=== PATIENT | male | born 1960 | race African-American/Black ===

== ENCOUNTER 2023-11-23 07:13 | Inpatient (IN) | payer MEDICARE, OTHER ==
[~2023-11-23] VITALS: Ht 188 cm; Wt 119.7 kg
[2023-11-23] MEDS: SODIUM CHLORIDE 0.9% 1,000 ML IV ONE (08:23)
[2023-11-23 10:50] LABS: BASOPHILS % 0.5 % (0.0-2.0); CHLORIDE 100 mEq/L (98-107); HEMATOCRIT. 30.5 % (42.0-52.0); HEMOGLOBIN. 9.4 g/dL (14.0-18.0); LYMPHOCYTES % 7.5 % (20.0-50.0); MEAN CORPUSCULAR HEMOGLOBIN 27.2 pg (28.0-32.0); MEAN CORPUSCULAR HGB CONC 30.7 g/dL (31.0-37.0); MEAN CORPUSCULAR VOLUME 88.8 fL (80.0-94.0); MONOCYTES % 10.9 % (2.0-8.0); NEUTROPHILS % 81.1 % (40.0-76.0); PLATELET 133 x1000/uL (130-400); POTASSIUM 4.8 mEq/L (3.5-5.1); RED BLOOD CELL COUNT 3.44 mill/uL (4.7-6.1); RED CELL DISTRIBUTION WIDTH 19.3 % (11.6-14.6); SODIUM 134 mEq/L (136-145); WHITE BLOOD COUNT 7.7 x1000/uL (4.5-11.0)
[2023-11-23 10:51] LABS: CALCIUM 9.2 mg/dL (8.7-10.4); CARBON DIOXIDE 26 mEq/L (21-32)
[2023-11-23 10:55] LABS: INR 1.3
[2023-11-23 10:56] LABS: GLUCOSE 118 mg/dL (70-105)
[2023-11-23 10:57] LABS: UREA NITROGEN BLOOD 30 mg/dL (9-23)
[2023-11-23 10:58] LABS: ALANINE AMINOTRANSFERASE 49 IU/L (10-49); ALBUMIN 3.2 g/dL (3.2-4.8); AMMONIA 38 uMol/L (<32); ASPARTATE AMINOTRANSFERASE 121 IU/L (<34); CREATINE KINASE 609 IU/L (46-171); LACTIC ACID 2.2 mmol/L (0.4-2.0)
[2023-11-23 10:59] LABS: BILIRUBIN TOTAL 3.5 mg/dL (0.1-1.0); PROTEIN TOTAL 6.9 g/dL (6.0-8.3)
[2023-11-23 11:04] LABS: CREATININE 4.3 mg/dL (0.6-1.3)
[2023-11-23 11:08] LABS: ETHANOL BLOOD < 10 mg/dL (<10)
[2023-11-23 11:09] LABS: TROPONIN I HIGH SENSITIVITY 99 ng/L (3.0-53)
[2023-11-23 11:10] LABS: BG BASE EXCESS -2.2 mmol/L (-2.0-2.0); BG CARBOXYHEMOGLOBIN 0.3 % (0.5-1.5); BG DEOXYHEMOGLOBIN 1.8 % (0.0-5.0); BG FRACTION INSPIRED OXYGEN 28; BG HCO3 ACT 24.3 mmol/L (22.0-26.0); BG METHEMOGLOBIN 0.5 % (0.0-1.5); BG OXYGEN SATURATION 98.2 % (92.0-98.5); BG OXYHEMOGLOBIN 97.4 % (94.0-97.0); BG PCO2 49.9 mmHg (35.0-45.0); BG PH 7.306 (7.350-7.450); BG PO2 138.3 mmHg (75.0-100.0); BG SAMPLE SITE LEFT RADIAL; BG VENT MODE NASAL CANNULA
[2023-11-23] MEDS: SODIUM CHLORIDE 0.9% 1000ML BAG (SEPSIS BOLUS) IV ONE (12:44)
[2023-11-23] MEDS: PIPERACILLIN/TAZO 3.375G/50ML 50 ML IV ONE (12:44)
[2023-11-23] MEDS ORDERED: IPRATROPIUM/ALBUTEROL 0.5-3(2.5)MG/3ML NEB HHN PRN (12:45)
[2023-11-23] MEDS ORDERED: CLONIDINE 0.1MG TABLET PO PRN (12:45)
[2023-11-23] MEDS ORDERED: GUAIFENESIN 200MG/10ML SUGAR FREE UDC PO PRN (12:45)
[2023-11-23] MEDS: VANCOMYCIN 1G PREMIX 200 ML IV ONE (13:15)
[2023-11-23 13:56] LABS: IRON 37 ug/dL (65-175)
[2023-11-23 13:59] LABS: BILIRUBIN DIRECT 2.8 mg/dL (<=3.0); TOTAL IRON BINDING CAPACITY 143 ug/dl (250-425)
[2023-11-23 14:23] LABS: FERRITIN 105 ng/mL (22-322)
[2023-11-23 14:25] LABS: FOLIC ACID (FOLATE) SERUM 16.05 ng/mL (>5.38); VITAMIN B12 SERUM 667 pg/mL (211-911)
[2023-11-23 16:30] VITALS: BP 118/65; PULSE 74; RESP 20; TEMP 98.2
[2023-11-23 16:31] VITALS: BP 118/65; PULSE 76; RESP 20; TEMP 98.2
[2023-11-23] MEDS: FAMOTIDINE 20MG/2ML VIAL IV SCH (17:08)
[2023-11-23] MEDS: DEXT 5%/0.9% NACL 1,000 ML IV SCH (17:08)
[2023-11-23] MEDS: BLOOD SUGAR DIAGNOSTIC STRIP TEST SCH (17:08)
[2023-11-23] MEDS: INSULIN LISPRO 100 UNITS/ML SUBCUT SCH (17:17)
[2023-11-23] MEDS ORDERED: ASPIRIN 81MG EC TABLET PO SCH (19:15)
[2023-11-23 20:00] VITALS: BP 136/52; PULSE 72; RESP 16; TEMP 95.9
[2023-11-23] MEDS: ATORVASTATIN CALCIUM 40MG TABLET PO SCH (21:19)
[2023-11-23] MEDS: ENOXAPARIN 120MG/0.8ML SYR SUBCUT SCH (21:22)
[2023-11-24] VITALS (12 sets, daily range): BP systolic 100–134; BP diastolic 64–82; PULSE 74–99; RESP 16–20; TEMP 96.1–97.8
[2023-11-24] MEDS: MUPIROCIN 2% OINT 15GM TOP SCH (10:00)
[2023-11-24] MEDS ORDERED: ASPIRIN 81MG EC TABLET PO SCH (11:30)
[2023-11-24] MEDS ORDERED: CLOPIDOGREL 75MG TABLET PO SCH (11:30)
[2023-11-24] MEDS ORDERED: HYDRALAZINE HCL 25MG TABLET PO PRN (11:45)
[2023-11-24 12:42] LABS: BASOPHILS % 0.6 % (0.0-2.0); EOSINOPHILS % 0.8 % (0.0-5.0); HEMATOCRIT. 27.9 % (42.0-52.0); HEMOGLOBIN. 8.9 g/dL (14.0-18.0); LYMPHOCYTES % 15.2 % (20.0-50.0); MEAN CORPUSCULAR HEMOGLOBIN 28.8 pg (28.0-32.0); MEAN CORPUSCULAR HGB CONC 32.1 g/dL (31.0-37.0); MEAN CORPUSCULAR VOLUME 89.7 fL (80.0-94.0); MEAN PLATELET VOLUME 9.1 fl (7.4-10.4); MONOCYTES % 9.9 % (2.0-8.0); NEUTROPHILS % 73.5 % (40.0-76.0); PLATELET 133 x1000/uL (130-400); RED BLOOD CELL COUNT 3.11 mill/uL (4.7-6.1); RED CELL DISTRIBUTION WIDTH 19.3 % (11.6-14.6); WHITE BLOOD COUNT 5.6 x1000/uL (4.5-11.0)
[2023-11-24 12:53] LABS: CARBON DIOXIDE 25 mEq/L (21-32); CHLORIDE 101 mEq/L (98-107); POTASSIUM 4.9 mEq/L (3.5-5.1); SODIUM 134 mEq/L (136-145)
[2023-11-24 12:54] LABS: CALCIUM 9.5 mg/dL (8.7-10.4)
[2023-11-24 12:58] LABS: CREATININE 4.7 mg/dL (0.6-1.3); GLUCOSE 72 mg/dL (70-105)
[2023-11-24 12:59] LABS: TRIGLYCERIDE 67 mg/dL (0-150); UREA NITROGEN BLOOD 33 mg/dL (9-23)
[2023-11-24 13:00] LABS: ALANINE AMINOTRANSFERASE 49 IU/L (10-49); ALBUMIN 3.1 g/dL (3.2-4.8); ASPARTATE AMINOTRANSFERASE 108 IU/L (<34); LDL CHOLESTEROL 40 mg/dL (5-100)
[2023-11-24 13:01] LABS: BILIRUBIN TOTAL 3.2 mg/dL (0.1-1.0); CHOLESTEROL 74 mg/dL (<200); HDL CHOLESTEROL 26 mg/dL (>55); PROTEIN TOTAL 6.5 g/dL (6.0-8.3)
[2023-11-24 13:03] LABS: THYROID STIMULATING HORMONE 1.14 uIU/mL (0.55-4.78)
[2023-11-24 13:39] LABS: HEPATITIS B SURFACE ANTIGEN NEGATIVE (Negative)
[2023-11-24] MEDS: ASPIRIN 81MG TABLET PO SCH (14:03)
[2023-11-24] MEDS: CLOPIDOGREL 75MG TABLET PO SCH (14:04)
[2023-11-24] MEDS: APIXABAN 2.5 MG TABLET PO SCH (14:04)
[2023-11-24] MEDS: GABAPENTIN 100MG CAPSULE PO SCH (14:04)
[2023-11-24 15:58] LABS: T4 FREE 0.97 ng/dL (0.89-1.76)
[2023-11-24 16:09] LABS: HEPATITIS B SURFACE AB 810.6 mIU/mL (<10)
[2023-11-24] MEDS ORDERED: ATORVASTATIN CALCIUM 40MG TABLET PO SCH (21:00)
[2023-11-24] MEDS: ATORVASTATIN CALCIUM 40MG TABLET PO SCH (21:38)
[2023-11-25] VITALS: BP 103/68; PULSE 80; RESP 18; TEMP 97.5
[2023-11-25 04:00] VITALS: BP 101/72; PULSE 51; RESP 18; TEMP 97.8
[2023-11-25] MEDS: DOCUSATE SODIUM 100MG CAPSULE PO PRN (06:05)
[2023-11-25] MEDS ORDERED: HYDROCODONE/ACETAMINOPHEN 5/325MG TABLET PO ONE (06:15)
[2023-11-25 08:00] VITALS: BP 111/79; PULSE 80; RESP 18; TEMP 96.1
[2023-11-25 12:00] VITALS: BP 100/65; PULSE 80; RESP 19; TEMP 96.9
[2023-11-25 16:00] VITALS: BP 98/60; PULSE 82; RESP 18; TEMP 97
[2023-11-25 20:00] VITALS: BP 102/67; PULSE 82; RESP 19; TEMP 97.7
[2023-11-26] VITALS (14 sets, daily range): BP systolic 103–124; BP diastolic 66–90; PULSE 75–90; RESP 16–20; TEMP 97–98.9
[2023-11-26] MEDS: LORAZEPAM 0.5MG TABLET PO NR (03:16)
[2023-11-26 09:16] LABS: CHLORIDE 102 mEq/L (98-107); POTASSIUM 5.2 mEq/L (3.5-5.1); SODIUM 136 mEq/L (136-145)
[2023-11-26 09:16] LABS: HEMATOCRIT 29.5 % (42.0-52.0); HEMOGLOBIN 9.1 g/dL (14.0-18.0); MEAN CORPUSCULAR HEMOGLOBIN 27.6 pg (28.0-32.0); MEAN CORPUSCULAR HGB CONC 30.9 g/dL (31.0-37.0); MEAN CORPUSCULAR VOLUME 89.3 fL (80.0-94.0); PLATELET 168 x1000/uL (130-400); RED CELL DISTRIBUTION WIDTH 19.7 % (11.6-14.6); WHITE BLOOD COUNT 7.8 x1000/uL (4.5-11.0)
[2023-11-26 09:17] LABS: CARBON DIOXIDE 26 mEq/L (21-32)
[2023-11-26 09:18] LABS: CALCIUM 9.2 mg/dL (8.7-10.4)
[2023-11-26 09:22] LABS: GLUCOSE 91 mg/dL (70-105)
[2023-11-26 09:23] LABS: UREA NITROGEN BLOOD 39 mg/dL (9-23)
[2023-11-26 09:25] LABS: PHOSPHORUS 4.5 mg/dL (2.5-4.9)
[2023-11-26 09:34] LABS: CREATININE 5.1 mg/dL (0.6-1.3)
[2023-11-26] MEDS: LORAZEPAM 2MG/ML INJ IV NR (14:10)
[2023-11-26 19:45] LABS: HEPATITIS B SURFACE ANTIGEN NEGATIVE (Negative)
[2023-11-26 20:05] LABS: HEPATITIS A AB IGM NEGATIVE (Negative)
[2023-11-26 20:06] LABS: HEPATITIS B CORE AB IGM NEGATIVE (Negative); HEPATITIS C AB NON REACTIVE (Neg) (Negative)
[2023-11-26] MEDS: DAPTOMYCIN 1,000 MG in SODIUM CHLORIDE 0.9% 100 ML IV SCH (22:03)
[2023-11-27] VITALS (12 sets, daily range): BP systolic 96–154; BP diastolic 67–83; PULSE 73–94; RESP 11–22; TEMP 96.7–98.1
[2023-11-27 01:52] LABS: BASOPHILS % 0.7 % (0.0-2.0); EOSINOPHILS % 0.2 % (0.0-5.0); HEMATOCRIT. 26.6 % (42.0-52.0); HEMOGLOBIN. 8.4 g/dL (14.0-18.0); MEAN CORPUSCULAR HGB CONC 31.6 g/dL (31.0-37.0); MEAN CORPUSCULAR VOLUME 88.5 fL (80.0-94.0); MEAN PLATELET VOLUME 8.3 fl (7.4-10.4); NEUTROPHILS % 75.1 % (40.0-76.0); PLATELET 150 x1000/uL (130-400); RED BLOOD CELL COUNT 3.01 mill/uL (4.7-6.1); RED CELL DISTRIBUTION WIDTH 19.6 % (11.6-14.6); WHITE BLOOD COUNT 6.4 x1000/uL (4.5-11.0)
[2023-11-27 01:53] LABS: BG BASE EXCESS -2.7 mmol/L (-2.0-2.0); BG CARBOXYHEMOGLOBIN 0.1 % (0.5-1.5); BG FRACTION INSPIRED OXYGEN 100; BG HCO3 ACT 25.4 mmol/L (22.0-26.0); BG METHEMOGLOBIN 0.3 % (0.0-1.5); BG OXYGEN SATURATION 83.9 % (92.0-98.5); BG OXYHEMOGLOBIN 83.6 % (94.0-97.0); BG PCO2 60.2 mmHg (35.0-45.0); BG PH 7.243 (7.350-7.450); BG PO2 59.9 mmHg (75.0-100.0); BG TOTAL HEMOGLOBIN 11.8 g/dL (12.0-18.0); BG VENT MODE MASK - NRB
[2023-11-27 01:54] LABS: POTASSIUM 4.9 mEq/L (3.5-5.1)
[2023-11-27 01:56] LABS: CALCIUM 9.1 mg/dL (8.7-10.4)
[2023-11-27 01:59] LABS: INR 1.3; PROTHROMBIN TIME 14.3 sec (9.6-11.0)
[2023-11-27 02:03] LABS: AMMONIA 72 uMol/L (<32)
[2023-11-27 02:12] LABS: CREATININE 5.1 mg/dL (0.6-1.3)
[2023-11-27] MEDS: DEXTROSE 50% WATER 50ML SYRINGE IV PRN (05:45)
[2023-11-27 09:52] LABS: HEMATOCRIT 28.2 % (42.0-52.0); HEMOGLOBIN 8.7 g/dL (14.0-18.0); MEAN CORPUSCULAR HEMOGLOBIN 27.5 pg (28.0-32.0); MEAN CORPUSCULAR HGB CONC 30.9 g/dL (31.0-37.0); MEAN CORPUSCULAR VOLUME 89.2 fL (80.0-94.0); PLATELET 165 x1000/uL (130-400); RED BLOOD CELL COUNT 3.16 mill/uL (4.7-6.1); RED CELL DISTRIBUTION WIDTH 19.5 % (11.6-14.6); WHITE BLOOD COUNT 6.7 x1000/uL (4.5-11.0)
[2023-11-27 11:27] LABS: CALCIUM 9.6 mg/dL (8.7-10.4)
[2023-11-27 11:37] LABS: CREATININE 5.3 mg/dL (0.6-1.3)
[2023-11-27 11:53] LABS: BG BASE EXCESS -0.2 mmol/L (-2.0-2.0); BG CARBOXYHEMOGLOBIN 0.3 % (0.5-1.5); BG DEOXYHEMOGLOBIN 0.2 % (0.0-5.0); BG FRACTION INSPIRED OXYGEN 100; BG HCO3 ACT 26.8 mmol/L (22.0-26.0); BG METHEMOGLOBIN 0.3 % (0.0-1.5); BG OXYGEN SATURATION 99.8 % (92.0-98.5); BG OXYHEMOGLOBIN 99.2 % (94.0-97.0); BG PCO2 56.9 mmHg (35.0-45.0); BG PH 7.291 (7.350-7.450); BG PO2 387.9 mmHg (75.0-100.0); BG SAMPLE SITE RIGHT RADIAL; BG TOTAL HEMOGLOBIN 9.1 g/dL (12.0-18.0); BG TOTAL RESPIRATORY RATE 28 b/min; BG VENT MODE MASK - BIPAP
[2023-11-28] VITALS (20 sets, daily range): BP systolic 93–106; BP diastolic 60–83; PULSE 76–87; RESP 13–22; TEMP 97.2–98.4
[2023-11-28 09:17] LABS: HEMATOCRIT 25.9 % (42.0-52.0); HEMOGLOBIN 8.2 g/dL (14.0-18.0)
[2023-11-28 09:26] LABS: INR 1.3; PARTIAL THROMBOPLASTIN TIME 30.9 sec (23.4-31.0); PROTHROMBIN TIME 14.6 sec (9.6-11.0)
[2023-11-28] MEDS ORDERED: NALOXONE HCL 0.4MG/ML VIAL IV PRN (13:15)
[2023-11-28] MEDS: TRAMADOL 50MG TABLET PO PRN (13:18)
[2023-11-28] MEDS ORDERED: HYDRALAZINE HCL 25MG TABLET PO PRN (14:30)
[2023-11-28] MEDS: ALPRAZOLAM 0.25 MG TABLET PO PRN (15:47)
[2023-11-29] VITALS (16 sets, daily range): BP systolic 90–121; BP diastolic 65–94; PULSE 76–84; RESP 13–24; TEMP 96.9–98
[2023-11-29 05:49] LABS: HEMOGLOBIN. 8.8 g/dL (14.0-18.0); MEAN CORPUSCULAR HEMOGLOBIN 27.8 pg (28.0-32.0); MEAN CORPUSCULAR HGB CONC 31.3 g/dL (31.0-37.0); MEAN CORPUSCULAR VOLUME 88.9 fL (80.0-94.0); MEAN PLATELET VOLUME 8.5 fl (7.4-10.4); PLATELET 161 x1000/uL (130-400); RED BLOOD CELL COUNT 3.15 mill/uL (4.7-6.1); RED CELL DISTRIBUTION WIDTH 19.5 % (11.6-14.6); WHITE BLOOD COUNT 8.1 x1000/uL (4.5-11.0)
[2023-11-29 06:11] LABS: CALCIUM 9.4 mg/dL (8.7-10.4); POTASSIUM 5.3 mEq/L (3.5-5.1)
[2023-11-29 06:16] LABS: DIFFERENTIAL COMMENT 1
[2023-11-29 06:21] LABS: CREATININE 5.7 mg/dL (0.6-1.3)
[2023-11-29] MEDS: LACTULOSE 20G/30ML UDC PO SCH (13:30)
[2023-11-29 23:28] LABS: ANISOCYTOSIS 1+; HYPOCHROMASIA 1+; NUCLEATED RED BLOOD CELLS 1 /100 WBC; PLATELET ESTIMATE NORMAL
[2023-11-30] VITALS (19 sets, daily range): BP systolic 86–117; BP diastolic 46–96; PULSE 73–100; RESP 16–27; TEMP 97–98.7
[2023-11-30 06:57] LABS: AMMONIA 61 uMol/L (<32)
[2023-11-30 07:12] LABS: CARBON DIOXIDE 22 mEq/L (21-32); CHLORIDE 102 mEq/L (98-107); SODIUM 133 mEq/L (136-145)
[2023-11-30 07:18] LABS: GLUCOSE 92 mg/dL (70-105); UREA NITROGEN BLOOD 52 mg/dL (9-23)
[2023-11-30 07:22] LABS: HEMATOCRIT. 28.7 % (42.0-52.0); MEAN CORPUSCULAR HEMOGLOBIN 27.6 pg (28.0-32.0); MEAN CORPUSCULAR HGB CONC 31.4 g/dL (31.0-37.0); MEAN CORPUSCULAR VOLUME 87.7 fL (80.0-94.0); MEAN PLATELET VOLUME 8.5 fl (7.4-10.4); PLATELET 178 x1000/uL (130-400); RED BLOOD CELL COUNT 3.27 mill/uL (4.7-6.1); RED CELL DISTRIBUTION WIDTH 19.8 % (11.6-14.6); WHITE BLOOD COUNT 7.7 x1000/uL (4.5-11.0)
[2023-11-30 07:35] LABS: DIFFERENTIAL COMMENT 1
[2023-11-30 07:56] LABS: CREATININE 6.3 mg/dL (0.6-1.3)
[2023-11-30] MEDS: INSULIN REGULAR (HUMULIN R) 300UNITS/3ML VIAL IV NR (08:15)
[2023-11-30] MEDS: CALCIUM GLUCONATE 1GM PREMIX 50 ML IV SCH (10:10)
[2023-11-30] MEDS: DEXTROSE 50% WATER 50ML SYRINGE IV NR (10:12)
[2023-11-30 13:28] LABS: ANISOCYTOSIS 1+; PLATELET ESTIMATE NORMAL
[2023-11-30] MEDS: ALPRAZOLAM 0.5 MG TABLET PO PRN (21:22)
[2023-12-01] VITALS (11 sets, daily range): BP systolic 93–113; BP diastolic 65–100; PULSE 75–79; RESP 14–21; TEMP 95.5–98.6; O2SAT 98
[2023-12-01 06:35] LABS: HEMATOCRIT. 26.5 % (42.0-52.0); HEMOGLOBIN. 8.4 g/dL (14.0-18.0); MEAN CORPUSCULAR HEMOGLOBIN 27.8 pg (28.0-32.0); MEAN CORPUSCULAR HGB CONC 31.7 g/dL (31.0-37.0); MEAN CORPUSCULAR VOLUME 87.8 fL (80.0-94.0); MEAN PLATELET VOLUME 8.4 fl (7.4-10.4); PLATELET 150 x1000/uL (130-400); RED BLOOD CELL COUNT 3.02 mill/uL (4.7-6.1); RED CELL DISTRIBUTION WIDTH 19.5 % (11.6-14.6)
[2023-12-01 06:54] LABS: POTASSIUM 5.6 mEq/L (3.5-5.1)
[2023-12-01 06:55] LABS: CALCIUM 9.6 mg/dL (8.7-10.4)
[2023-12-01 06:59] LABS: DIFFERENTIAL COMMENT 1
[2023-12-01 07:13] LABS: CREATININE 5.6 mg/dL (0.6-1.3)
[2023-12-01 09:58] LABS: PLATELET ESTIMATE NORMAL
[2023-12-01 10:00] LABS: HYPOCHROMASIA 1+
[2023-12-01 12:23] LABS: ANISOCYTOSIS 1+
[2023-12-01 15:28] LABS: POTASSIUM 5.5 mEq/L (3.5-5.1)
[2023-12-01 15:29] LABS: CALCIUM 9.4 mg/dL (8.7-10.4)
[2023-12-01 15:36] LABS: AMMONIA 47 uMol/L (<32)
[2023-12-01 17:09] LABS: CREATININE 5.7 mg/dL (0.6-1.3)
== END 2023-12-01 21:03 | DRG 91 ==
LOC: ER 07:13 → 7EST 12:18 → EDBEDREQ 12:26 → 5EST 11-27 04:28
PROVIDERS: ADMIT Hospitalist; ATTEND Hospitalist
PROC: 5A1D70Z Performance of Urinary Filtration, Intermittent, Less than 6 Hours Per Day (ICD-10-PCS; 2023-11-24)
PROC: 5A1D70Z Performance of Urinary Filtration, Intermittent, Less than 6 Hours Per Day (ICD-10-PCS; 2023-11-26)
PROC: 5A09357 Assistance with Respiratory Ventilation, Less than 24 Consecutive Hours, Continuous Positive Airway Pressure (ICD-10-PCS; principal; 2023-11-27)
PROC: 5A09357 Assistance with Respiratory Ventilation, Less than 24 Consecutive Hours, Continuous Positive Airway Pressure (ICD-10-PCS; 2023-11-28)
PROC: 5A1D70Z Performance of Urinary Filtration, Intermittent, Less than 6 Hours Per Day (ICD-10-PCS; 2023-11-28)
PROC: 5A09357 Assistance with Respiratory Ventilation, Less than 24 Consecutive Hours, Continuous Positive Airway Pressure (ICD-10-PCS; 2023-11-30)
PROC: 5A1D70Z Performance of Urinary Filtration, Intermittent, Less than 6 Hours Per Day (ICD-10-PCS; 2023-11-30)
DX: G92.8 Other toxic encephalopathy (principal); I21.A1 Myocardial infarction type 2; N18.6 End stage renal disease; I13.2 Hypertensive heart and chronic kidney disease with heart failure and with stage 5 chronic kidney disease, or end stage renal disease; E87.1 Hypo-osmolality and hyponatremia; M62.82 Rhabdomyolysis; R18.8 Other ascites; E72.20 Disorder of urea cycle metabolism, unspecified; D68.59 Other primary thrombophilia; I50.22 Chronic systolic (congestive) heart failure; E78.5 Hyperlipidemia, unspecified; D64.9 Anemia, unspecified; E11.22 Type 2 diabetes mellitus with diabetic chronic kidney disease; L85.3 Xerosis cutis; K74.60 Unspecified cirrhosis of liver; I48.0 Paroxysmal atrial fibrillation; E11.51 Type 2 diabetes mellitus with diabetic peripheral angiopathy without gangrene; K76.82 Hepatic encephalopathy; E11.40 Type 2 diabetes mellitus with diabetic neuropathy, unspecified; E11.65 Type 2 diabetes mellitus with hyperglycemia; L84 Corns and callosities; F41.1 Generalized anxiety disorder; I25.10 Atherosclerotic heart disease of native coronary artery without angina pectoris; I25.5 Ischemic cardiomyopathy; Z99.2 Dependence on renal dialysis; Z95.5 Presence of coronary angioplasty implant and graft; Z79.01 Long term (current) use of anticoagulants; Z79.4 Long term (current) use of insulin; Z79.899 Other long term (current) drug therapy; Z88.6 Allergy status to analgesic agent
CPT/HCPCS: 36415; 36600; 71045; 76770; 80048; 80053; 80061; 80320; 82140; 82248; 82375; 82550; 82607; 82728; 82746; 82805; 82962; 83036; 83540; 83550; 83605; 83735; 83930; 84100; 84145; 84439; 84443; 84484; 85014; 85018; 85025; 85027; 86705; 86706; 86709; 86850; 86900; 87340; 90935; 92523; 92610; 93005; 93306; 93970; 94660; 97162; 97164; 97166; 99291; A6261; J0610; J0878; J1650; J1815; J2060; J2543; J3370; J3490; J7030; J7050; G0480